=== PATIENT | female | born 1990 | race Caucasian/White ===

== ENCOUNTER → 2017-04-08 | Outpatient (CLI) | payer OTHER ==
[~2017-04-08] MED LIST: OXYC5TAB PO; PRENTAB26 PO; WLLXL150 PO
[2017-04-08 16:31] LABS: URINE APPEARANCE CLEAR (CLEAR); URINE BILIRUBIN NEG (NEG); URINE COLOR YELLOW; URINE NITRITE NEG (NEG); URINE PH 5.5 (4.5-7.5); URINE SPECIFIC GRAVITY 1.016 (1.000-1.030); UROBILINOGEN NEG (NEG)
[2017-04-08 16:36] LABS: MANUAL MICROSCOPIC REQUIRED? NO; REVIEW REQ? NO
== END | disposition home or self-care (01) ==
LOC: C.LABSPEC 15:55
PROVIDERS: ATTEND Obstetrics & Gynecology
DX: O34.219 Maternal care for unspecified type scar from previous cesarean delivery (principal); Z3A.00 Weeks of gestation of pregnancy not specified

== ENCOUNTER → 2017-04-15 | Outpatient (CLI) | payer OTHER ==
[2017-04-18 02:03] LABS: CHLAMYDIA TRACH RNA*** NOT DETECTED (NOT DETECTED); GC (NEIS GONORRHOEAE)RNA** NOT DETECTED (NOT DETECTED)
== END | disposition home or self-care (01) ==
LOC: C.LABSPEC 17:46
PROVIDERS: ATTEND Obstetrics & Gynecology
DX: O34.219 Maternal care for unspecified type scar from previous cesarean delivery (principal)

== ENCOUNTER → 2017-05-09 | Outpatient (CLI) | payer OTHER | END | disposition home or self-care (01) | LOC: C.PATHSPEC 17:24 | PROVIDERS: ATTEND Plastic Surgery | DX: L72.11 Pilar cyst (principal) ==

== ENCOUNTER → 2017-05-13 | Outpatient (CLI) | payer OTHER ==
[2017-05-13 16:37] LABS: BASO % 0.2 %; BASO ABS # 0.02 K/uL (0-0.2); COMPLETE YES; EOS % 0.3 %; HEMATOCRIT 38.2 % (37-47); IG% 0.2 %; LYMPH % 17.1 %; LYMPH ABS # 1.85 K/uL (1.2-3.4); MEAN CELL VOLUME 84.1 fL (80-100); MEAN CORPUSCULAR HEMOGLOBIN 29.1 pg (25-34); MEAN CORPUSCULAR HGB CONC 34.6 g/dl (32-36); MEAN PLATELET VOLUME 10.8 fL (7.4-10.4); MONO % 7.1 %; NEUT % 75.1 %; PLATELET COUNT 199 K/uL (130-400); RED BLOOD COUNT 4.54 M/uL (4.2-5.4); WHITE BLOOD COUNT 10.81 K/uL (4.8-10.8)
== END | disposition home or self-care (01) ==
LOC: C.LAB1850 15:29
PROVIDERS: ATTEND Obstetrics & Gynecology
DX: O34.219 Maternal care for unspecified type scar from previous cesarean delivery (principal); Z3A.00 Weeks of gestation of pregnancy not specified

== ENCOUNTER → 2017-06-28 | Outpatient (CLI) | payer OTHER ==
[2017-06-28 13:08] LABS: GTGD 50 Grams
[2017-07-04 14:26] LABS: AFP CONCENTRATION 25.9 NG/ML; AFP MULTIPLE OF MEDIAN 0.82; AFPTS GESTATIONAL AGE 16.7 WEEKS; AFPTS INSULIN DEP DIABETIC? NO; AFPTS MATERNAL WT 181 LBS; ALPHA-FETOPROTEIN RACE CAUCASIAN=W; HISTORY OF NTD NO; INHIBIN A 118 PG/ML; INHIBIN A MOM 0.77; REPEAT SAMPLE? NO; hCG MULTIPLE OF MEDIAN 0.37
== END | disposition home or self-care (01) ==
LOC: C.LAB1850 11:00
PROVIDERS: ATTEND Obstetrics & Gynecology
DX: O36.5910 Maternal care for other known or suspected poor fetal growth, first trimester, not applicable or unspecified (principal); Z3A.00 Weeks of gestation of pregnancy not specified; O34.219 Maternal care for unspecified type scar from previous cesarean delivery

== ENCOUNTER 2017-08-07 15:24 | Outpatient (CLI) | payer OTHER ==
[~2017-08-07] VITALS: Ht 170.2 cm; Wt 84.1 kg
[2017-08-07 16:24] VITALS: Ht 170.2 cm; Wt 84.1 kg
== END 2017-08-07 17:30 | disposition home or self-care (01) ==
LOC: C.OBG 15:24 → C.OPB 15:24
PROVIDERS: ATTEND Obstetrics & Gynecology
DX: O36.8190 Decreased fetal movements, unspecified trimester, not applicable or unspecified (principal); Z3A.00 Weeks of gestation of pregnancy not specified

== ENCOUNTER 2017-09-18 15:09 | Outpatient (CLI) | payer OTHER ==
[~2017-09-18] VITALS: Ht 170.2 cm; Wt 89.5 kg
[~2017-09-18 15:09] MED LIST changes: -OXYC5TAB PO; -WLLXL150 PO
[2017-09-18 15:33] VITALS: Ht 170.2 cm; Wt 89.5 kg
[2017-09-18] MEDS ORDERED: INFLUENZA ADMINISTRATION CHARGE ONE (16:15)
[2017-09-18] MEDS ORDERED: INFLUENZA VIRUS QUAD VACCINE 0.5 ML SYR IM. ONE (16:15)
== END 2017-09-18 16:07 | disposition home or self-care (01) ==
LOC: C.OPB 15:09 → C.LD 15:09 → C.OPB 16:07
PROVIDERS: ATTEND Obstetrics & Gynecology
DX: O26.899 Other specified pregnancy related conditions, unspecified trimester (principal); Z3A.00 Weeks of gestation of pregnancy not specified

== ENCOUNTER → 2017-09-20 | Outpatient (CLI) | payer OTHER ==
[2017-09-20 16:15] LABS: HEMATOCRIT 35.4 % (37-47)
[2017-09-20 19:19] LABS: URINE APPEARANCE CLEAR (CLEAR); URINE BILIRUBIN NEG (NEG); URINE COLOR YELLOW; URINE EPITHELIAL CELL AUTO >30 /lpf (0-5); URINE NITRITE NEG (NEG); URINE SPECIFIC GRAVITY 1.018 (1.000-1.030); UROBILINOGEN NEG (NEG)
[2017-09-20 19:27] LABS: MANUAL MICROSCOPIC REQUIRED? NO; REVIEW REQ? NO
[2017-09-20 21:31] LABS: GTGD 50 Grams
== END | disposition home or self-care (01) ==
LOC: C.LAB1850 15:03
PROVIDERS: ATTEND Obstetrics & Gynecology
DX: O09.93 Supervision of high risk pregnancy, unspecified, third trimester (principal)

== ENCOUNTER → 2017-11-15 | Outpatient (CLI) | payer OTHER | END | disposition home or self-care (01) | LOC: C.LABSPEC 16:59 | PROVIDERS: ATTEND Obstetrics & Gynecology | DX: Z34.83 Encounter for supervision of other normal pregnancy, third trimester (principal); Z3A.00 Weeks of gestation of pregnancy not specified ==

== ENCOUNTER 2017-11-18 17:20 | Outpatient (CLI) | payer OTHER ==
--- NOTE | 2017-11-22 13:56 | EDITING REQUIRED CODING QUERY ---
DIAGNOSIS NEEDED To promote full compliance with coding requirements relating to patient care, physician participation is requested in all cases of supervisor cloth winding uncertainty. Please assist us with the question(s) below: Coding Question: The patient received care in labor and delivery on 11/18/17 as noted within the record. Please document the diagnosis that is being addressed by the medication/treatment. Provider Response: DIAGNOSIS: Decreased movement, NST only WEEKS OF GESTATION: 37 weeks Thank you for your assistance, Rosemary Swanson - Auto Clocks Repairer
== END 2017-11-18 18:05 | disposition home or self-care (01) ==
LOC: C.LD 17:20 → C.OPB 17:20
PROVIDERS: ATTEND Obstetrics & Gynecology
DX: O36.8130 Decreased fetal movements, third trimester, not applicable or unspecified (principal); Z3A.37 37 weeks gestation of pregnancy

== ENCOUNTER 2017-11-22 00:04 | Outpatient (CLI) | payer OTHER ==
[~2017-11-22] VITALS: Ht 170.2 cm; Wt 99.5 kg
[2017-11-22 00:54] VITALS: Ht 170.2 cm; Wt 99.5 kg
--- NOTE | 2017-11-29 11:42 | EDITING REQUIRED CODING QUERY ---
DIAGNOSIS NEEDED To promote full compliance with coding requirements relating to patient care, physician participation is requested in all cases of loop tender uncertainty. Please assist us with the question(s) below: Coding Question: The patient received care in labor and delivery on 11/22/17 as noted within the record. Please document the diagnosis that is being addressed by the medication/treatment. Provider Response: DIAGNOSIS: contractions WEEKS OF GESTATION: term, ?37 weeks Thank you for your assistance, Rosemary Swanson - Vice Principal
== END 2017-11-22 03:09 | disposition home or self-care (01) ==
LOC: C.OPB 00:04 → C.LD 00:04 → C.OPB 03:09
PROVIDERS: ATTEND Obstetrics & Gynecology
DX: O62.9 Abnormality of forces of labor, unspecified (principal); Z3A.00 Weeks of gestation of pregnancy not specified

== ENCOUNTER → 2017-11-25 | Outpatient (CLI) | payer OTHER ==
[~2017-11-25] MED LIST changes: +MISC-836; +MTR600X PO; +OXYC-57 PO
--- NOTE | 2017-11-25 12:32 | PAT Medication Instructions ---
Service Date Nov 25, 2017. Current Home Medication List Multivit/Min/Iron/Fol Ac/Pren ( Vitamin), 1 TABLET PO QPM Medication Instructions For Your Scheduled Surgery - Take the following medications as scheduled the night before surgery: Multivit/Min/Iron/Fol Ac/Pren ( Vitamin), 1 TABLET PO QPM If you have any questions please call us at [phone] or [phone] or [phone]
[2017-11-25 13:03] LABS: BASO % 0.1 %; BASO ABS # 0.01 K/uL (0-0.2); EOS % 0.6 %; EOS ABS # 0.05 K/uL (0-0.5); HEMOGLOBIN 10.9 g/dL (12.0-16.0); IG# 0.03 K/uL (0.00-0.02); LYMPH % 22.8 %; MEAN CELL VOLUME 81.2 fL (80-100); MEAN CORPUSCULAR HEMOGLOBIN 25.3 pg (25-34); MEAN CORPUSCULAR HGB CONC 31.1 g/dl (32-36); MEAN PLATELET VOLUME 11.5 fL (7.4-10.4); MONO ABS # 0.71 K/uL (0.11-0.59); NEUT % 67.1 %; NEUT ABS # 5.28 K/uL (1.4-6.5); PLATELET COUNT 181 K/uL (130-400); RED CELL DISTRIBUTION WIDTH CV 14.2 % (11.5-14.5); RED CELL DISTRIBUTION WIDTH SD 41.9 fL (36.4-46.3); WHITE BLOOD COUNT 7.88 K/uL (4.8-10.8)
--- NOTE | 2017-11-25 15:16 | HISTORY & PHYSICAL EXAMINATION ---
DATE OF ADMISSION: 12/09/2017 HISTORY OF PRESENT ILLNESS: The patient is 4, para 2-0-1-2 with an intrauterine at 40 and 1/7th weeks, who presents for scheduled repeat section. Her history is significant for in August of 2012, a normal spontaneous vaginal delivery of a 7 pound 8 ounce male and in April of 2013, she had a spontaneous miscarriage and in March of 2016, at 40 and 6/7th weeks, she had a section for nonreassuring heart testing of an 8 pound 8 ounce male. She presents today for default delivery. She has been cramping for the last several weeks and has had some intermittent spotting, but notes good movement. The has otherwise been uncomplicated. PAST OBSTETRICAL AND GYNECOLOGICAL HISTORY: As noted above. She has a history of a colposcopy in 2011. Most recent Pap was normal. She denies a history of sexually transmitted illnesses. PAST MEDICAL HISTORY: Significant for depression, for which she is currently on Zoloft. She denies thyroid disease, asthma, heart disease, heart murmur, diabetes, kidney or liver problems. She does have a history of chickenpox. PAST SURGICAL HISTORY: Includes a colonoscopy in March of 2017, a and colposcopy. SOCIAL HISTORY: The patient denies tobacco, alcohol or drug use. She lives with the father of the baby and her 2 sons. FAMILY HISTORY: Essentially noncontributory. ALLERGIES: No known drug allergies. MEDICATIONS: vitamin and Zoloft 50 mg daily. PHYSICAL EXAMINATION: GENERAL: This is a well-developed and well-nourished white female in no acute distress. VITAL SIGNS: Blood pressure 116/74 and weight 220 pounds. NECK: Supple without thyromegaly or lymphadenopathy. CHEST: Clear to auscultation bilaterally. CARDIOVASCULAR: Regular rate and rhythm without murmurs, gallops or rubs. ABDOMEN: Soft, gravid and nontender. EXTREMITIES: Show trace edema, but are otherwise benign. LABORATORY DATA: A positive, antibody negative, rubella immune, RPR nonreactive, hepatitis B surface antigen negative, HIV negative, and chlamydia and gonorrhea cultures negative. Cystic fibrosis and spinal muscular atrophy declined. 16-week glucose 100. 20-week glucose 87. Quad screen negative. Panorama negative. Group B strep negative. ASSESSMENT: Darcy is a 27-year-old white female 4, para 2-0-1-2, who presents at 40-1/7 weeks for a scheduled default repeat section. The risks of the procedure were discussed with the patient including risks of anesthesia, bleeding requiring transfusion, infection, poor wound healing, damage to surrounding structures including bowel, bladder, vessels, nerves and ureters with need for further surgery, hospitalization or further intervention discussed. Discussed possible injury to the baby. Discussed any risks associated with surgery including heart attack, blood clot, stroke or . Surgery is scheduled for the . The patient and her are also considering sterilization. We discussed a tubal ligation at the time of section and they seemed like they were wanting to do that. Unfortunately, the patient ____ and has not signed her 30-day consent form, so we will be unable to do the tubal at the time of .
== END | disposition home or self-care (01) ==
LOC: C.LAB 08:00 → C.LD 12-03 08:24 → C.OPB 12-03 08:24 → EDSTATUS 12-09 07:30
PROVIDERS: ATTEND Obstetrics & Gynecology
DX: Z01.812 Encounter for preprocedural laboratory examination (principal)

== ENCOUNTER 2017-12-03 07:54 | Inpatient (IN) | payer OTHER ==
[2017-12-03] VITALS (13 sets, daily range): BP systolic 113–131; BP diastolic 59–79; PULSE 70–85; TEMP 36.4–36.8; O2SAT 98–100; Ht 154.9 cm; Wt 101.8 kg
[~2017-12-03] VITALS: Ht 154.9 cm; Wt 101.8 kg
[~2017-12-03 07:54] MED LIST changes: -MISC-836; -MTR600X PO; -OXYC-57 PO
[2017-12-03] MEDS ORDERED: LACTATED RINGER'S 1000ML 1,000 ML IV SCH ×3 (08:21→10:03)
[2017-12-03] MEDS ORDERED: LACTATED RINGER'S 1000ML 1,000 ML IV PRN ×2 (08:21→08:45)
[2017-12-03 08:35] LABS: HEMATOCRIT 33.7 % (37-47); MEAN CELL VOLUME 79.5 fL (80-100); MEAN CORPUSCULAR HEMOGLOBIN 25.9 pg (25-34); MEAN CORPUSCULAR HGB CONC 32.6 g/dl (32-36); MEAN PLATELET VOLUME 10.7 fL (7.4-10.4); PLATELET COUNT 162 K/uL (130-400); RED CELL DISTRIBUTION WIDTH CV 14.7 % (11.5-14.5); RED CELL DISTRIBUTION WIDTH SD 41.8 fL (36.4-46.3); WHITE BLOOD COUNT 10.63 K/uL (4.8-10.8)
[2017-12-03] MEDS ORDERED: CITRIC ACID/SODIUM CITRATE 15 ML UDC PO ONE (08:45)
[2017-12-03] MEDS ORDERED: MoRPHine SULFATE PF 1 MG/ML 10 ML AMP/VIAL ONE (08:51)
[2017-12-03] MEDS ORDERED: FENTANYL CITRATE INJ 50 MCG/1 ML 2 ML VIAL ONE (08:51)
[2017-12-03] MEDS ORDERED: OXYTOCIN INJ 10 UNITS/ML VIAL ONE (08:53)
[2017-12-03] MEDS ORDERED: FENTANYL CITRATE INJ 50 MCG/1 ML 2 ML VIAL IV PRN (09:00)
[2017-12-03] MEDS ORDERED: ATROPINE SULFATE 0.1 MG/ML 5ML SYR IV PRN (09:00)
[2017-12-03] MEDS ORDERED: EpHEDrine SULFATE INJ 50 MG/ML AMP IV PRN ×2 (09:00→10:15)
[2017-12-03] MEDS ORDERED: ONDANSETRON INJ 2 MG/ML 2 ML VIAL IV PRN ×2 (09:00→10:15)
[2017-12-03] MEDS ORDERED: CEFAZOLIN IV 2,000 MG in SYRINGE 0 ML IV ONE (09:00)
[2017-12-03] MEDS ORDERED: PHENYLEPHRINE 100MCG/ML 5ML SYR ONE (09:34)
[2017-12-03] MEDS ORDERED: OXYTOCIN INJ 30 UNITS in LACTATED RINGER'S 1000ML 1,000 ML IV SCH (10:03)
[2017-12-03] MEDS ORDERED: SODIUM CHLORIDE 0.9% 1000ML 1,000 ML IV PRN (10:11)
[2017-12-03] MEDS ORDERED: NALOXONE HCL INJ 0.08 MG in SYRINGE 1.8 ML IV PRN (10:11)
[2017-12-03] MEDS ORDERED: NALOXONE HCL INJ 1 MG in SODIUM CHLORIDE 0.9% 1000ML 1,000 ML IV PRN (10:11)
[2017-12-03] MEDS ORDERED: LACTATED RINGER'S 1000ML 500 ML IV PRN (10:11)
[2017-12-03] MEDS ORDERED: MEPERIDINE HCL 25 MG/ML CARP IV PRN (10:15)
[2017-12-03] MEDS ORDERED: BENZOCAINE 20% AER SPR 82.5 GM CAN EXT PRN (10:15)
[2017-12-03] MEDS ORDERED: MoRPHine SULFATE PF 1 MG/ML 10 ML AMP/VIAL EPI PRN (10:15)
[2017-12-03] MEDS ORDERED: NO NARCOTICS OR SEDATIVES SCH (10:15)
[2017-12-03] MEDS ORDERED: HYDROCORTISONE ACETATE 25 MG SUPP PR PRN (10:15)
[2017-12-03] MEDS ORDERED: LANOLIN OINT EXT PRN (10:15)
[2017-12-03] MEDS ORDERED: NALOXONE HCL 0.4 MG/1 ML VIAL/CARP IV PRN (10:15)
[2017-12-03] MEDS ORDERED: DIPHTHERIA/TETANUS/PERTUSSIS 0.5 ML SYR/VIAL IM. ONE (10:15)
[2017-12-03] MEDS ORDERED: DC INTRASPINAL MORPHINE SCH (10:15)
[2017-12-03] MEDS ORDERED: NALBUPHINE HCL INJ 10 MG/ML AMP IV PRN (10:15)
[2017-12-03] MEDS ORDERED: SUPERCREAM 0.870 % 15GM JAR EXT PRN (10:15)
[2017-12-03] MEDS ORDERED: DiphenhydrAMINE HCL 50 MG/ML VIAL IV PRN (10:15)
--- NOTE | 2017-12-03 10:34 | OPERATIVE REPORT ---
DATE OF OPERATION: 12/03/2017 PREOPERATIVE DIAGNOSES: 1. [place]ahan intrauterine . 2. History of section. 3. Onset of labor and spontaneous rupture of membranes. 4. Nonreassuring heart tones, remote from delivery. POSTOPERATIVE DIAGNOSES: Same. PROCEDURE: Repeat low transverse section. SURGEON: Hilda Caldwell MD. LENS BLANK GAUGER: Gulshan Gan MD. ESTIMATED BLOOD LOSS: 600. COMPLICATIONS: None. DISPOSITION: Stable to labor and delivery. DESCRIPTION OF THE PROCEDURE: The patient was placed on the table in the supine position with a leftward tilt and prepped and draped in standard sterile fashion and a hard time-out was taken prior to proceeding. After adequate anesthesia had been demonstrated through a pinching chest, a Pfannenstiel incision was created by excising the prior keloid scar. This incision was then carried down sharply to the fascia which was incised and then extended using Paulino scissors. The fascia was elevated and sharply and bluntly dissected off the underlying rectus muscles. Of note, there was fairly dense scar tissue in the subcutaneous tissue, as well as throughout the dissection of the fascia off of the rectus. Once the fascia had been completely freed superiorly and posteriorly, the midline of the rectus was identified and bluntly using the production machine computer operator's fingers. The peritoneum was entered bluntly and then extended with pressure from the surgeon's hands. The bladder blade was introduced and the bladder flap was created using pickups and Metzenbaum scissor. A low transverse uterine incision was created and this was done with final entry into the uterus in a blunt manner using the finger. The incision was extended in a blunt manner. Clear amniotic fluid was encountered. The infant's head was gently elevated to the hysterotomy and delivered using mild fundal pressure. Of note, there were no nuchal cord and no difficulties with extraction. The vigorous female made respiratory and crying efforts before the cord was even clamped. The cord was doubly clamped and cut and the infant was taken to the warmer. Cord gas section was collected and then cord blood was also collected. The placenta was manually extracted and found to be intact with a 3-vessel cord. The uterus was exteriorized and cleared of all clot and debris using a dry lap sponge. The angles of the hysterotomy were identified using Allis clamps and the hysterotomy was repaired in 2 layer fashion using 0 Vicryl suture in a running locked manner with an imbricating second layer. Of note, a dense adhesions from the left pelvic side wall to the anterior uterine surface was identified when the uterus was exteriorized. This was doubly clamped with Kellys and each section was then suture ligated and then the Kellys were released. With all working sites noted to be hemostatic, the uterus was gently reinternalized. The posterior and lateral gutters being cleared of debris with irrigation and suction. Final examination of the hysterotomy revealed good hemostasis except for a small bleeder near the right angle. This was controlled with a [id number] suture of 0 Vicryl. Once hemostasis had been completely achieved, the rectus muscles were allowed to reapproximate naturally. The fascia was closed using #1 Vicryl suture in a running nonlocked manner. The subcutaneous tissue was copiously irrigated and gently reapproximated with a 3-0 chromic. The skin edges where the previous keloid had been excised were then gently reapproximated using 4-0 Monocryl and a Dermabond dressing was then applied. The patient was then transferred in stable condition to her recovery room having tolerated the procedure well. I attest to the content of the Intraoperative Record and any orders documented therein. Any exception s are noted below.
--- NOTE | 2017-12-03 11:09 | Anesthesiology Progress Note ---
Anesthesia Post Op Note Date & Time Dec 03, 2017 at 11:09 Notes Mental Status: alert / awake / arousable, participated in evaluation Pt Amnestic to Procedure: Yes Nausea / Vomiting: adequately controlled Pain: adequately controlled Airway Patency, RR, SpO2: stable & adequate BP & HR: stable & adequate Hydration State: stable & adequate Neuraxial Anesthesia: was administered, sensory block is resolving Anesthetic Complications: no major complications apparent
[2017-12-03] MEDS: KETOROLAC TROMETHAMINE 30 MG/ML VIAL IV. PRN ×2 (12:30→18:41)
[2017-12-03] MEDS: SIMETHICONE 80 MG CHEW PO SCH ×3 (13:00→20:13)
[2017-12-03] MEDS: DOCUSATE SODIUM 100 MG CAP PO SCH (20:13)
[2017-12-04] VITALS (8 sets, daily range): BP systolic 110–125; BP diastolic 71–78; PULSE 80–91; TEMP 36.5–37; O2SAT 97–100
[2017-12-04] MEDS: KETOROLAC TROMETHAMINE 30 MG/ML VIAL IV. PRN (00:34)
[2017-12-04] MEDS ORDERED: ONDANSETRON INJ 2 MG/ML 2 ML VIAL IV PRN (03:15)
[2017-12-04] MEDS ORDERED: KETOROLAC TROMETHAMINE 30 MG/ML VIAL IV. PRN (03:15)
[2017-12-04] MEDS ORDERED: MEPERIDINE HCL 50 MG/ML CARP IV PRN ×2 (03:15)
[2017-12-04] MEDS ORDERED: DiphenhydrAMINE HCL 50 MG/ML VIAL IV PRN (03:15)
[2017-12-04] MEDS ORDERED: CEFAZOLIN IV 2,000 MG in DEXTROSE 5% 50ML 50 ML IV SCH (06:00)
--- NOTE | 2017-12-04 06:13 | Progress Note ---
Subjective Dec 04, 2017. Subjective conversation w/ patient (Patient seen and examined at bedside) Ambulation: ambulating normally Voiding: no voiding problems (Pt had limon removed at 4AM and has not voided yet at 6AM) Passing Gas: Yes Diet Tolerance: Clear Liquids Lochia: Moderate Feeding Type: Breast Feeding (and pumping) Pain: 3-4/10, localized to incision and improved with analgesia Review of Systems Constitutional: No fever Respiratory: No shortness of breath Cardiac: No chest pain Abdomen: No nausea, No vomiting Objective Vital Signs Date Time Temp Pulse Resp B/P (MAP) Pulse Ox O2 Delivery O2 Flow Rate FiO2 12/04/17 04:15 36.9 81 18 110/71 (84) 98 Room Air 12/04/17 01:45 16 97 12/04/17 00:45 18 99 12/03/17 23:45 18 98 12/03/17 23:45 36.7 85 18 119/76 (90) 98 Room Air 12/03/17 23:45 98 Room Air 12/03/17 22:10 16 98 12/03/17 21:10 18 98 12/03/17 20:10 18 99 12/03/17 19:10 18 100 12/03/17 19:00 36.8 84 18 131/79 (96) Room Air 12/03/17 18:10 18 100 12/03/17 17:10 16 99 12/03/17 16:10 16 99 12/03/17 15:10 18 100 12/03/17 15:10 36.4 70 18 113/73 (86) 100 Room Air 12/03/17 15:10 100 Room Air 12/03/17 14:10 36.4 84 18 120/59 (79) 100 Room Air 12/03/17 14:10 100 Room Air 12/03/17 14:10 18 100 12/03/17 12:55 100 Room Air 12/03/17 12:55 18 100 Physical Exam General Appearance: WELL-APPEARING, WD/WN, NO APPARENT DISTRESS Respiratory/Chest: lungs clear, normal breath sounds Cardiovascular: regular rate, rhythm Abdomen: soft Fundus: Firm, Tender, Relation to Umbilicus (1 below u) Incision Description: Clean, Dry & Intact Extremities: no calf tenderness Laboratory Results Last 24 Hours Test 12/03/17 08:25 12/04/17 06:00 White Blood Count 10.63 K/uL Red Blood Count 4.24 M/uL Hemoglobin 11.0 g/dL Hematocrit 33.7 % Mean Corpuscular Volume 79.5 fL Mean Corpuscular Hemoglobin 25.9 pg Mean Corpuscular Hemoglobin Concent 32.6 g/dl RDW Standard Deviation 41.8 fL RDW Coefficient of Variation 14.7 % Platelet Count 162 K/uL Mean Platelet Volume 10.7 fL Medications Current Inpatient Medications Medications (Trade) Dose Ordered Sig/Fátima Route Start Time Stop Time Status Last Admin Dose Admin Lactated Ringer's 1,000 ml @ 125 mls/hr Q8H IV 12/03/17 08:45 12/05/17 08:20 12/03/17 21:35 125 MLS/HR Lactated Ringer's 1,000 ml @ 999 mls/hr Q1H1M PRN IV 12/03/17 08:45 01/02/18 08:20 12/03/17 08:54 999 MLS/HR Lactated Ringer's 1,000 ml @ 125 mls/hr Q8H IV 12/03/17 10:03 01/02/18 10:02 Ketorolac Tromethamine (Toradol Inj) 30 mg Q6H PRN IV. 12/04/17 03:15 12/09/17 03:14 Meperidine HCl (Demerol Inj) 50 mg Q4H PRN IV 12/04/17 03:15 12/18/17 03:14 Meperidine HCl (Demerol Inj) 75 mg Q4H PRN IV 12/04/17 03:15 12/18/17 03:14 Oxycodone/ Acetaminophen (Percocet 5-325mg Tab) 1 tab Q4H PRN PO 12/04/17 03:15 12/18/17 03:14 Oxycodone/ Acetaminophen (Percocet 5-325mg Tab) 2 tab Q4H PRN PO 12/04/17 03:15 12/18/17 03:14 Ibuprofen (Motrin Tab) 600 mg Q4H PRN PO 12/03/17 10:15 01/02/18 10:14 Ondansetron HCl (Zofran Inj) 4 mg Q4H PRN IV 12/04/17 03:15 01/03/18 03:14 Prenat Multivit/ Care Transition Manager/Iron/Folic Ac ( Vitamin Tab) 1 tab DAILY PO 12/04/17 08:00 01/03/18 07:59 Docusate Sodium (coLACE CAP) 100 mg BID PO 12/03/17 20:00 01/02/18 19:59 12/03/17 20:13 100 MG Cocaine HCl (Supercream 0.870% Cr) BID PRN EXT 12/03/17 10:15 12/17/17 10:14 Lanolin (Lanolin Oint) PRN PRN EXT 12/03/17 10:15 01/02/18 10:14 Hydrocortisone Acetate (Anusol Hc Supp) 25 mg BID PRN NH 12/03/17 10:15 01/02/18 10:14 Benzocaine (Dermoplast Aero Spr) 1 appln PRN PRN EXT 12/03/17 10:15 01/02/18 10:14 Simethicone (Mylicon Chew Tab) 80 mg QID PO 12/03/17 13:00 01/02/18 12:59 12/03/17 20:13 80 MG Diphenhydramine HCl (Benadryl Cap) 25 mg QID PRN PO 12/04/17 03:15 01/03/18 03:14 Diphenhydramine HCl (Benadryl Inj) 25 mg QID PRN IV 12/04/17 03:15 01/03/18 03:14 Assessment and Plan Post-Op Day#: 1 Continue Routine Care: 27 year old s/p repeat after failing trial of due to non- reassuring heart tones - day 1 post-op - pt doing well clinically - A+, Rubella immune, GBS -ve - advance diet as tolerated - vitals reviewed and wnl - continue to encourage ambulation, and analgesia prn - Hgb 11 yesterday, will review when results available today Resident Physician Supervision Note: I interviewed and examined the patient. Discussed with Dr. Ortiz and agree with findings and plan as documented in the note. Any exceptions or clarifications are listed here: [None] Documented By: Hilda Caldwell Resident Tracking Resident Involvement: Resident Care Provided Care Provided: OB Delivery
--- NOTE | 2017-12-04 06:34 | Discharge Instructions ---
Discharge Instructions Date of Service Dec 04, 2017. Admission Reason for Admission: Labor Check Discharge Discharge Diagnosis / Problem: Discharge Goals Goal(s): Routine recovery after Medications Continue Dispensed Medications: supercream, lansinoh Activity Recommendations Activity Limitations: per Instructions/Follow-up section . Instructions / Follow-Up Instructions / Follow-Up ACTIVITY RECOMMENDATIONS: * Gradual return to full activity over the next 2-3 weeks. * No lifting - nothing heavier than baby over the next 2-3 weeks. * Do not engage in vigorous exercise, sexual activity or sports until cleared by your physician. * Do not drive or operate any motorized equipment until cleared by your physician. * You may shower/bathe daily. MEDICATIONS: For discomfort or pain, you may use Acetaminophen (Tylenol), Ibuprofen (Advil), or Naproxen (Aleve) following the package directions. For constipation you may use Colace following the package directions. BREAST CARE: If you are not breast feeding: * Wear a supportive bra 24 hours a day for one to two weeks. * Avoid stimulating your breasts and nipples as much as possible during the first few weeks after delivery. * When taking a shower, have the warm water hit your back, not breasts. * When your breasts feel full, apply ice packs. Usually three to four times a day helps ease the discomfort. * Take a mild pain medication (Tylenol / Motrin) when you are uncomfortable. If breast feeding: * Use breast milk to lubricate nipples. Lansinoh cream may be used for sore nipples. You do not need to remove cream prior to breast feeding. If using a different brand of cream, check the label for directions regarding removal of cream prior to nursing. * Wear a supportive bra. * If having problems with breasts or breast feeding, call a national sales consultant or your health care provider. SPECIAL CARE INSTRUCTIONS: When you are discharged from the hospital, it is important for you to follow the instructions listed below: * During the first week at home, you should be able to care for yourself and your baby. In addition, the usual light household activities are encouraged. * Limit your activities to the way you feel. Do not try to clean the house or move furniture. Be sensible. * If you actively engage in sports and have done so up until the time of your delivery, you may resume these activities as soon as you feel able. This may take up to one month or even longer. Use good judgment. * Continue to take your vitamins for at least six weeks after the of your baby. * Your diet need not be limited unless you were on a special diet before your delivery. Breast-feeding mothers need around 2500 calories per day and at least 64-80 ounces of fluid per day (8 to 10 glasses). * You should eat foods from the four major food groups. Crash diets or fad diets are to be avoided. Eating lean meats, fresh fruits and vegetables, low-fat dairy products, high fiber foods and a regular exercise program, will help you get back to your pre- weight without putting your health at risk. * Constipation is sometimes a problem after delivery. Take a mild laxative as needed. If breast feeding, Milk of Magnesia is acceptable to use. You may use a suppository or Fleets enema. * A daily shower or tub bath is suggested. Wash incision daily with warm soapy water and pat dry. It doesn't need to be covered unless drainage is present. * A bloody vaginal discharge will usually continue until around four weeks . A small amount of bleeding may continue for as long as six weeks. Vaginal discharge changes from the bright red bleeding after delivery to pink then brownish and finally yellowish-pink before becoming white and disappearing. * Bleeding may increase with activity. Your first period may come in 4-8 weeks. If you are breast feeding, your period may be delayed even longer. * [place] (sex) can begin whenever both you and your partner feel comfortable and do not have any form of genital infection. It is recommended that you wait at least six weeks for internal and external healing to occur. If you have questions, please talk to your health care practitioner. A condom should be used to prevent infection and . * Foreplay, gentle intercourse and lubrication is very important the first several times to prevent pain. A water-based lubricant such as K-Y jelly or Astroglide may be used. * If you have RH negative blood and your baby is RH positive, you will receive RHOGAM by injection prior to discharge. The nurse will give you a card to keep with you that has the date and place that you received RHOGAM after delivery. * During your care, you had a Rubella screen done to check for the presence of rubella antibodies in your blood. If your test was negative, you will receive a Rubella vaccine prior to discharge. This vaccine may cause a fever, soreness at the injection site and flu-like symptoms. If these symptoms persist, notify your health care practitioner. is not advised for one month after a Rubella vaccine. * Verbalizes understanding of car seat law as reviewed with patient nursing. * Car Seat hand-out given and reviewed with patient by nursing. * Shaken baby information reviewed with patient by nursing. Call you doctor if: * Heavy bleeding (saturating several pads an hour) or passing clots the size of your fist. * A fever >101 degrees F (38.3 degrees C) on two occasions four hours apart and /or chills. * Unusual pain in the pelvic or vaginal areas. * Call the doctor for any increased redness, drainage or swelling around the incision and any pain unrelieved by prescribed pain medication. * "Baby Blues" lasting longer than two weeks. If you have any questions or concerns, call your health care practitioner at . FOLLOW UP VISIT: * Please call the office at to schedule a 6 week examination. It is important you keep this appointment. It is important for you to make arrangements for either yearly or twice yearly check-ups thereafter. Current Hospital Diet Patient's current hospital diet: Clear Liquid Diet Discharge Diet Recommended Diet: Regular Diet Procedures Procedures Performed: Live Female at 0928 Pending Studies Studies pending at discharge: no Medical Emergencies . Who to Call and When: Medical Emergencies: If at any time you feel your situation is an emergency, please call 911 immediately. . Non-Emergent Contact Non-Emergency issues call your: Primary Care Provider . . "Provider Documentation" section prepared by Praveen Ortiz. . VTE Core Measure Inpt VTE Proph given/why not?: SCD's
[2017-12-04 07:58] LABS: BASO % 0.1 %; BASO ABS # 0.01 K/uL (0-0.2); EOS % 0.4 %; EOS ABS # 0.05 K/uL (0-0.5); HEMATOCRIT 31.3 % (37-47); HEMOGLOBIN 10.1 g/dL (12.0-16.0); IG# 0.06 K/uL (0.00-0.02); LYMPH % 9.5 %; LYMPH ABS # 1.18 K/uL (1.2-3.4); MEAN CELL VOLUME 79.4 fL (80-100); MEAN CORPUSCULAR HEMOGLOBIN 25.6 pg (25-34); MEAN CORPUSCULAR HGB CONC 32.3 g/dl (32-36); MEAN PLATELET VOLUME 10.7 fL (7.4-10.4); MONO % 7.1 %; MONO ABS # 0.88 K/uL (0.11-0.59); NEUT % 82.4 %; NEUT ABS # 10.18 K/uL (1.4-6.5); PLATELET COUNT 146 K/uL (130-400); RED CELL DISTRIBUTION WIDTH CV 14.9 % (11.5-14.5); RED CELL DISTRIBUTION WIDTH SD 43.4 fL (36.4-46.3); WHITE BLOOD COUNT 12.36 K/uL (4.8-10.8)
[2017-12-04] MEDS: DOCUSATE SODIUM 100 MG CAP PO SCH ×2 (08:05→20:13)
[2017-12-04] MEDS: PRENATAL VITAMIN TAB PO SCH (08:05)
[2017-12-04] MEDS: SIMETHICONE 80 MG CHEW PO SCH ×4 (08:05→20:11)
[2017-12-04] MEDS: OXYCODONE/ACETAMINOPHEN 5-325 TAB PO PRN ×4 (08:06→20:11)
[2017-12-04] MEDS: IBUPROFEN 600 MG TAB PO PRN ×4 (08:06→20:10)
[2017-12-05] MEDS: IBUPROFEN 600 MG TAB PO PRN ×6 (00:14→21:05)
[2017-12-05] MEDS: OXYCODONE/ACETAMINOPHEN 5-325 TAB PO PRN ×6 (00:15→21:07)
--- NOTE | 2017-12-05 06:30 | Progress Note ---
Subjective Dec 05, 2017. Subjective conversation w/ patient (Patient seen and examined at bedside) Ambulation: ambulating normally Voiding: no voiding problems Passing Gas: Yes Diet Tolerance: Regular Diet Lochia: Moderate Feeding Type: Breast Feeding (and pumping) Pain: 3-4/10, improved with analgesia Review of Systems Constitutional: No fever, No chills Respiratory: No shortness of breath Cardiac: No chest pain Abdomen: No pain Female : No dysuria Objective Vital Signs Date Time Temp Pulse Resp B/P (MAP) Pulse Ox O2 Delivery O2 Flow Rate FiO2 12/04/17 23:30 36.8 91 18 119/74 (89) Room Air 12/04/17 23:30 Room Air 12/04/17 16:04 Room Air 12/04/17 15:52 36.5 80 18 112/74 (87) 12/04/17 07:45 37.0 88 18 125/78 (94) 100 Room Air 12/04/17 07:45 100 Room Air Physical Exam General Appearance: WELL-APPEARING, WD/WN, NO APPARENT DISTRESS Respiratory/Chest: lungs clear, normal breath sounds Cardiovascular: regular rate, rhythm Abdomen: soft Fundus: Firm, Tender, Relation to Umbilicus (1 below) Incision Description: Clean, Dry & Intact Extremities: no calf tenderness Laboratory Results Last 24 Hours Test 12/04/17 07:19 White Blood Count 12.36 K/uL Red Blood Count 3.94 M/uL Hemoglobin 10.1 g/dL Hematocrit 31.3 % Mean Corpuscular Volume 79.4 fL Mean Corpuscular Hemoglobin 25.6 pg Mean Corpuscular Hemoglobin Concent 32.3 g/dl Platelet Count 146 K/uL Mean Platelet Volume 10.7 fL Neutrophils (%) (Auto) 82.4 % Lymphocytes (%) (Auto) 9.5 % Monocytes (%) (Auto) 7.1 % Eosinophils (%) (Auto) 0.4 % Basophils (%) (Auto) 0.1 % Neutrophils # (Auto) 10.18 K/uL Lymphocytes # (Auto) 1.18 K/uL Monocytes # (Auto) 0.88 K/uL Eosinophils # (Auto) 0.05 K/uL Basophils # (Auto) 0.01 K/uL RDW Standard Deviation 43.4 fL RDW Coefficient of Variation 14.9 % Immature Granulocyte % (Auto) 0.5 % Immature Granulocyte # (Auto) 0.06 K/uL Medications Current Inpatient Medications Medications (Trade) Dose Ordered Sig/Fátima Route Start Time Stop Time Status Last Admin Dose Admin Lactated Ringer's 1,000 ml @ 125 mls/hr Q8H IV 12/03/17 08:45 12/05/17 08:20 12/03/17 21:35 125 MLS/HR Lactated Ringer's 1,000 ml @ 999 mls/hr Q1H1M PRN IV 12/03/17 08:45 01/02/18 08:20 12/03/17 08:54 999 MLS/HR Lactated Ringer's 1,000 ml @ 125 mls/hr Q8H IV 12/03/17 10:03 01/02/18 10:02 Ketorolac Tromethamine (Toradol Inj) 30 mg Q6H PRN IV. 12/04/17 03:15 12/09/17 03:14 Meperidine HCl (Demerol Inj) 50 mg Q4H PRN IV 12/04/17 03:15 12/18/17 03:14 Meperidine HCl (Demerol Inj) 75 mg Q4H PRN IV 12/04/17 03:15 12/18/17 03:14 Oxycodone/ Acetaminophen (Percocet 5-325mg Tab) 1 tab Q4H PRN PO 12/04/17 03:15 12/18/17 03:14 12/05/17 04:21 1 TAB Oxycodone/ Acetaminophen (Percocet 5-325mg Tab) 2 tab Q4H PRN PO 12/04/17 03:15 12/18/17 03:14 12/05/17 00:15 2 TAB Ibuprofen (Motrin Tab) 600 mg Q4H PRN PO 12/03/17 10:15 01/02/18 10:14 12/05/17 04:21 600 MG Ondansetron HCl (Zofran Inj) 4 mg Q4H PRN IV 12/04/17 03:15 01/03/18 03:14 Prenat Multivit/ Teacher Tutor/Iron/Folic Ac ( Vitamin Tab) 1 tab DAILY PO 12/04/17 08:00 01/03/18 07:59 12/04/17 08:05 1 TAB Docusate Sodium (coLACE CAP) 100 mg BID PO 12/03/17 20:00 01/02/18 19:59 12/04/17 20:13 100 MG Cocaine HCl (Supercream 0.870% Cr) BID PRN EXT 12/03/17 10:15 12/17/17 10:14 Lanolin (Lanolin Oint) PRN PRN EXT 12/03/17 10:15 01/02/18 10:14 Hydrocortisone Acetate (Anusol Hc Supp) [address] 12/03/17 10:15 01/02/18 10:14 Benzocaine (Dermoplast Aero Spr) 1 appln PRN PRN EXT 12/03/17 10:15 01/02/18 10:14 Simethicone (Mylicon Chew Tab) 80 mg QID PO 12/03/17 13:00 01/02/18 12:59 12/04/17 20:11 80 MG Diphenhydramine HCl (Benadryl Cap) 25 mg QID PRN PO 12/04/17 03:15 01/03/18 03:14 Diphenhydramine HCl (Benadryl Inj) 25 mg QID PRN IV 12/04/17 03:15 01/03/18 03:14 Assessment and Plan Post-Op Day#: 2 Continue Routine Care: 27 year old s/p repeat after failing trial of due to non- reassuring heart tones - day 2 post-op - pt doing well clinically - A+, Rubella immune, GBS -ve - vitals reviewed and wnl - continue to encourage ambulation, and analgesia prn - Hgb 11 -> 10.1 - anticipate d/c tomorrow Praveen Ortiz, PGY1 Resident Physician Supervision Note: I was present with Dr. Ortiz during the history and exam. I discussed the case with the resident and agree with the findings and plan as documented in the note. Any exceptions or clarifications are listed here: Fundus is appropriately tender and firm 2 down. wants to make sure going well before going home. Documented By: Anita Castano Resident Tracking Resident Involvement: Resident Care Provided Care Provided: OB Delivery
[2017-12-05] MEDS ORDERED: MISC-836 (06:37)
[2017-12-05] MEDS ORDERED: MTR600X PO (07:33)
[2017-12-05] MEDS ORDERED: OXYC-57 PO (07:33)
[2017-12-05 07:37] VITALS: BP 117/70; PULSE 70; TEMP 36.3; O2SAT 99
[2017-12-05] MEDS: DOCUSATE SODIUM 100 MG CAP PO SCH ×2 (07:44→19:33)
[2017-12-05] MEDS: PRENATAL VITAMIN TAB PO SCH (07:44)
[2017-12-05] MEDS: SIMETHICONE 80 MG CHEW PO SCH ×4 (07:44→19:33)
[2017-12-05 15:40] VITALS: BP 113/72; PULSE 75; TEMP 36.4; O2SAT 98
[2017-12-06 01:45] VITALS: BP 119/79; PULSE 89; TEMP 36.8; O2SAT 98
[2017-12-06] MEDS: IBUPROFEN 600 MG TAB PO PRN (06:04)
[2017-12-06] MEDS: OXYCODONE/ACETAMINOPHEN 5-325 TAB PO PRN (06:06)
--- NOTE | 2017-12-06 06:45 | Progress Note ---
Subjective Dec 06, 2017. Subjective conversation w/ patient, physical exam Ambulation: ambulating normally Voiding: no voiding problems Passing Gas: Yes Diet Tolerance: Regular Diet Lochia: Moderate Feeding Type: Breast Feeding Pain: 3/10, improved with analgesia Review of Systems Constitutional: No fever, No chills Respiratory: No shortness of breath Cardiac: No chest pain Abdomen: + nausea, No vomiting Objective Vital Signs Date Time Temp Pulse Resp B/P (MAP) Pulse Ox O2 Delivery O2 Flow Rate FiO2 12/06/17 01:45 98 Room Air 12/06/17 01:45 36.8 89 16 119/79 (92) 98 Room Air 12/05/17 15:40 36.4 75 20 113/72 (86) 98 Room Air 12/05/17 15:40 98 Room Air 12/05/17 07:37 36.3 70 18 117/70 (86) 99 Room Air 12/05/17 07:37 99 Room Air Physical Exam General Appearance: WELL-APPEARING, WD/WN, NO APPARENT DISTRESS Respiratory/Chest: lungs clear, normal breath sounds Cardiovascular: regular rate, rhythm Abdomen: soft Fundus: Firm, Non-Tender, Relation to Umbilicus (2 below) Incision Description: Clean, Dry & Intact Extremities: no calf tenderness Medications Current Inpatient Medications Medications (Trade) Dose Ordered Sig/Fátima Route Start Time Stop Time Status Last Admin Dose Admin Lactated Ringer's 1,000 ml @ 999 mls/hr Q1H1M PRN IV 12/03/17 08:45 01/02/18 08:20 12/03/17 08:54 999 MLS/HR Lactated Ringer's 1,000 ml @ 125 mls/hr Q8H IV 12/03/17 10:03 01/02/18 10:02 Ketorolac Tromethamine (Toradol Inj) 30 mg Q6H PRN IV. 12/04/17 03:15 12/09/17 03:14 Meperidine HCl (Demerol Inj) 50 mg Q4H PRN IV 12/04/17 03:15 12/18/17 03:14 Meperidine HCl (Demerol Inj) 75 mg Q4H PRN IV 12/04/17 03:15 12/18/17 03:14 Oxycodone/ Acetaminophen (Percocet 5-325mg Tab) 1 tab Q4H PRN PO 2/14/18 03:15 12/18/17 03:14 12/05/17 17:18 1 TAB Oxycodone/ Acetaminophen (Percocet 5-325mg Tab) 2 tab Q4H PRN PO 12/04/17 03:15 12/18/17 03:14 12/06/17 06:06 2 TAB Ibuprofen (Motrin Tab) 600 mg Q4H PRN PO 12/03/17 10:15 01/02/18 10:14 12/06/17 06:04 600 MG Ondansetron HCl (Zofran Inj) 4 mg Q4H PRN IV 12/04/17 03:15 01/03/18 03:14 Prenat Multivit/ Networking Administrator/Iron/Folic Ac ( Vitamin Tab) 1 tab DAILY PO 12/04/17 08:00 01/03/18 07:59 12/05/17 07:44 1 TAB Docusate Sodium (coLACE CAP) 100 mg BID PO 12/03/17 20:00 01/02/18 19:59 12/05/17 19:33 100 MG Cocaine HCl (Supercream 0.870% Cr) BID PRN EXT 12/03/17 10:15 12/17/17 10:14 Lanolin (Lanolin Oint) PRN PRN EXT 12/03/17 10:15 01/02/18 10:14 Hydrocortisone Acetate (Anusol Hc Supp) 25 mg BID PRN CO 12/03/17 10:15 01/02/18 10:14 Benzocaine (Dermoplast Aero Spr) 1 appln PRN PRN EXT 12/03/17 10:15 01/02/18 10:14 Simethicone (Mylicon Chew Tab) 80 mg QID PO 12/03/17 13:00 01/02/18 12:59 12/05/17 19:33 80 MG Diphenhydramine HCl (Benadryl Cap) 25 mg QID PRN PO 12/04/17 03:15 01/03/18 03:14 Diphenhydramine HCl (Benadryl Inj) 25 mg QID PRN IV 12/04/17 03:15 01/03/18 03:14 Assessment and Plan Post-Op Day#: 3 Continue Routine Care: 27 year old s/p repeat after failing trial of due to non- reassuring heart tones - day 3 post-op - pt doing well clinically - A+, Rubella immune, GBS -ve - vitals reviewed and wnl - continue to encourage ambulation and analgesia prn - pt states is improved from before - Hgb 11 -> 10.1 - pt ready for d/c today - will review d/c instructions Resident Physician Supervision Note: I interviewed and examined the patient. Discussed with Dr. Ortiz and agree with findings and plan as documented in the note. Any exceptions or clarifications are listed here: D/C instructions given, f/u in 6 weeks Documented By: Javy Lane Resident Tracking Resident Involvement: Resident Care Provided Care Provided: OB Delivery
[2017-12-06 08:00] VITALS: BP 126/76; PULSE 66; TEMP 36.7
[2017-12-06] MEDS: SIMETHICONE 80 MG CHEW PO SCH (08:19)
[2017-12-06] MEDS: PRENATAL VITAMIN TAB PO SCH (08:19)
[2017-12-06] MEDS: DOCUSATE SODIUM 100 MG CAP PO SCH (08:19)
[2017-12-06 09:57] VITALS: BP_DIAS 76; PULSE 66; TEMP 36.7
== END 2017-12-06 10:41 | disposition home or self-care (01) | DRG 766 ==
LOC: C.OPB 07:54 → C.LD 07:54 → C.OPB 08:24 → C.LD 08:24 → C.OBG 14:46
PROVIDERS: ADMIT Obstetrics & Gynecology; ATTEND Obstetrics & Gynecology
PROC: 10D00Z1 Extraction of Products of Conception, Low, Open Approach (ICD-10-PCS; principal; 2017-12-03 08:57)
DX: O76 Abnormality in fetal heart rate and rhythm complicating labor and delivery (principal); O66.5 Attempted application of vacuum extractor and forceps; O34.211 Maternal care for low transverse scar from previous cesarean delivery; Z3A.39 39 weeks gestation of pregnancy; Z37.0 Single live birth